=== PATIENT | male | born 2000 | race Caucasian/White ===

== ENCOUNTER 2023-10-27 09:02 | Inpatient (IN) | payer OTHER ==
[~2023-10-27] VITALS: Ht 175.3 cm; Wt 121.1 kg
[2023-10-27 09:09] VITALS: BP 116/72; PULSE 103; RESP 18; TEMP 98.6; O2SAT 96
--- NOTE | 2023-10-27 09:15 | NUR ---
TO ER BED 11
--- NOTE | 2023-10-27 09:30 | NUR ---
PATIENT PRESENTS TO ED WITH ABD PAIN . PT STATES THAT THEY HAVE 5/10 PAIN IN THE LOWERE ABD AREA. DENIES V/D PT STATES THEY HAVE NAUSEA; SKIN IS PINK/WARM/DRY; AAOX4 WITH EVEN AND STEADY GAIT; LUNGS CLEAR BL; HR EVEN AND REGULAR; PT DENIES ANY FEVER, CP, SOB, OR COUGH AT THIS TIME; VSS; PATIENT POSITIONED FOR COMFORT; HOB ELEVATED; BEDRAILS UP X2; BED DOWN. ER MD MADE AWARE OF PT STATUS. CALL LIGHT WITHIN REACH NKA DENIES PMHX
[2023-10-27] MEDS ORDERED: KETOROLAC 30 MG/ML VIAL IVP ONE (09:35)
--- NOTE | 2023-10-27 09:42 | NUR ---
PT TAKEN TO CT VIA W/C Addendum: 10/27/23 at 0947 by PHSEP brought back via w/c
[2023-10-27 10:08] LABS: APPEARANCE,URINE CLEAR (CLEAR); BILIRUBIN,URINE NEGATIVE (NEGATIVE); BLOOD, URINE NEGATIVE (NEGATIVE); COLOR,URINE YELLOW (YELLOW); LEUKOCYTE ESTERASE ,URINE NEGATIVE (NEGATIVE); NITRITE, URINE NEGATIVE (NEGATIVE); PROTEIN,URINE TRACE (NEGATIVE); UGLUCOSE NEGATIVE (NEGATIVE); UROBILINOGEN,URINE 0.2 EU/dL (0.2 - 1)
[2023-10-27] MEDS: MORPHINE SULFATE 4 MG/ML SYR IVP ONE (10:25)
[2023-10-27] MEDS: NACL 0.9% 1,000 ML IV ONE (10:25)
[2023-10-27 10:39] LABS: BASOPHILS % (AUTO) 0.1 % (0.0-2.0); EOSINOPHILS % (AUTO) 0.2 % (0.0-4.0); HEMATOCRIT 40.6 % (36-52); HEMOGLOBIN 13.6 g/dL (12.0-18.0); LYMPHOCYTES # (AUTO) 2.6 K/uL (2.0-11.5); LYMPHOCYTES % (AUTO) 18.8 % (20.5-51.1); MEAN CORPUSCULAR HEMOGLOBIN 29 pg (27-31); MEAN CORPUSCULAR HGB CONC 34 g/dL (33-37); MEAN CORPUSCULAR VOLUME 87.1 fL (80-94); MONOCYTES # (AUTO) 1.1 K/uL (0.8-1.0); MONOCYTES % (AUTO) 7.6 % (1.7-9.3); NEUTROPHILS # (AUTO) 10.3 K/uL (1.8-7.7); NEUTROPHILS % (AUTO) 73.3 % (42.2-75.2); PLATELET COUNT (AUTO) 342 K/uL (140-450); RED BLOOD CELL COUNT(AUTO) 4.66 MIL/uL (4.20-6.10); RED CELL DISTRIBUTION WIDTH 13.1 % (11.6-13.7)
[2023-10-27 10:54] LABS: ANION GAP 13.9 (8-16); CALCIUM 9.6 mg/dL (8.5-10.1); POTASSIUM 3.9 mmol/L (3.5-5.1)
[2023-10-27 10:59] LABS: ALBUMIN 4.2 g/dL (3.4-5.0); BILIRUBIN,DIRECT 0.2 mg/dL (0.0-0.3); TOTAL BILIRUBIN 1.6 mg/dL (0.0-1.0); TOTAL PROTEIN, SERUM 7.7 g/dL (6.4-8.2)
--- NOTE | 2023-10-27 11:16 | NUR ---
Patient appears to be resting comfortably in bed. Vital Signs within normal limits. Respirations even and unlabored.
--- NOTE | 2023-10-27 11:54 | NUR ---
PT TO CT SCAN VIA [facility] WITH CONVERTER OPERATOR
[2023-10-27] MEDS ORDERED: ROSU40TA PO (13:04)
[2023-10-27] MEDS ORDERED: TRAZ-343 PO (13:08)
[2023-10-27] MEDS ORDERED: SERT100T PO (13:08)
[2023-10-27] MEDS ORDERED: SERT50TA PO (13:08)
[2023-10-27] MEDS ORDERED: ACETAMINOPHEN 325 MG TAB PO PRN (13:55)
[2023-10-27] MEDS ORDERED: DOCUSATE SODIUM 100 MG GELCAP PO PRN (13:55)
[2023-10-27] MEDS ORDERED: MAG SULF 2000 MG/WATER PREMIX 50 ML IV PRN (13:55)
[2023-10-27 14:16] LABS: LACTIC ACID 1.5 mmol/L (0.4-2.0); MAGNESIUM 1.9 mg/dL (1.8-2.4); PHOSPHORUS 4.9 mg/dL (2.5-4.9)
[2023-10-27 14:29] LABS: INR 1.03 (0.8-1.2); PROTHROMBIN TIME 10.8 secs (10.8-13.4)
--- NOTE | 2023-10-27 14:42 | NUR ---
Patient appears to be resting comfortably in bed. Vital Signs within normal limits. Respirations even and unlabored.
[2023-10-27 15:30] VITALS: PULSE 89; RESP 18; O2SAT 98
--- NOTE | 2023-10-27 15:32 | NUR ---
ADMITTED FROM ER VIA [facility]. A & O X4. SPEECH CLEAR. NO C/O PAIN. NO C/O SOB. NO C/O N/V. SKIN WARM, DRY AND INTACT. EXPLAINED DIAGNOSIS, PLAN OF CARE, PAIN MANAGEMENT TEACHING, USE OF CALL LIGHT/BED/TV/BATHROOM. VERBALIZED UNDERSTANDING. CALL LIGHT WITHIN REACH.
[2023-10-27 15:45] VITALS: BP 109/69; PULSE 89; RESP 18; TEMP 98.5; O2SAT 98
--- NOTE | 2023-10-27 15:47 | NUR ---
Patient will be admitted to care of URIEL RIVERA. Admited to TELE. Will go to room 112A. Belongings list completed. MEDICATION RECON COMPLETED Report to MAXWELL JOSE .
--- NOTE | 2023-10-27 15:48 | NUR ---
Pt report given to MAXWELL JOSE. Transfer of care at this time.
[2023-10-27 15:54] LABS: AMPHETAMINE, URINE NEGATIVE ng/ml (NEG <=1000); BARBITURATE, URINE NEGATIVE ng/ml (NEG <=200); BENZODIAZEPINE, URINE NEGATIVE ng/mL (NEG <=200); CANNABINOID, URINE POSITIVE ng/mL (NEG <=50); COCAINE, URINE NEGATIVE ng/mL (NEG <=300); PHENCYCLIDINE SCREEN,URINE NEGATIVE ng/mL (NEG <=25)
[2023-10-27 15:55] LABS: OPIATE, URINE NEGATIVE ng/mL (NEG <=2000)
[2023-10-27 16:15] VITALS: PULSE 96
[2023-10-27] MEDS: DEXT 5% /NACL 0.9% 1,000 ML IV SCH (16:59)
[2023-10-27] MEDS: CIPROFLOXACIN 400 MG/200ML-D5W 200 ML IV SCH (17:13)
[2023-10-27 17:54] LABS: HEMATOCRIT 34.1 % (36-52); HEMOGLOBIN 11.6 g/dL (12.0-18.0)
[2023-10-27] MEDS: HYDROcodone/APAP 7.5/325 MG 1 TAB PO PRN (17:55)
--- NOTE | 2023-10-27 19:15 | NUR ---
BEDSIDE REPORT GIVEN TO DUGLAS TA. PT. MOTHER AT BEDSIDE. IN STABLE CONDITION.
--- NOTE | 2023-10-27 19:16 | NUR ---
REPORT GIVEN BY AM NURSE MAXWELL MARTEL FOR CONTINUITY OF CARE, PT A/OX4, RESPIRATION EQUAL, NON LABORED, ROOM AIR, PT VERBALIZED UNDERSTANDING OF NPO STATUS, RIGHT AC 18G 5% DEXTROSE NS @70ML/HR, BED IN LOWEST POSITION, RAILS UPX2, CALL LIGHT WITHIN REACH, COMMUNICATION BOARD UPDATED, WILL CONTINUE FREQUENT ROUNDS, WILL CONTINUE TO MONITOR.[email or web address]
[2023-10-27 20:00] VITALS: BP 117/75; PULSE 87; PULSE 92; RESP 18; TEMP 97.6; O2SAT 97
[2023-10-27] MEDS: metroNIDAZOLE 500 MG/NS PREMIX 100 ML IV SCH (20:18)
--- NOTE | 2023-10-27 22:00 | NUR ---
PT SLEEPING NO S/S OF DISTRESS NOTED, IV ABX GIVEN BY RN, PT TOLERATED ACTIVITY WELL.CALL LIGHT WITHIN REACH, WILL CONTINUE TO MONITOR.[email or web address]
[2023-10-28] VITALS (7 sets, daily range): BP systolic 108–129; BP diastolic 60–70; PULSE 76–96; RESP 18–76; TEMP 97–98.4; O2SAT 94–97
[2023-10-28 00:27] LABS: HEMATOCRIT 33.1 % (36-52); HEMOGLOBIN 11.4 g/dL (12.0-18.0)
[2023-10-28] MEDS: ONDANSETRON 4 MG/2 ML VIAL IV PRN (01:09)
--- NOTE | 2023-10-28 02:08 | NUR ---
PT STATES FEELING BETTER AFTER GIVEN MEDICATION BY RN FOR NAUSEA. NO S/S OF DISTRESS NOTED.CALL LIGHT WITHIN REACH.[email or web address]
[2023-10-28 06:32] LABS: BASOPHILS % (AUTO) 0.4 % (0.0-2.0); EOSINOPHILS # (AUTO) 0.1 K/uL (0-0.4); EOSINOPHILS % (AUTO) 1.1 % (0.0-4.0); HEMATOCRIT 32.6 % (36-52); HEMOGLOBIN 11.3 g/dL (12.0-18.0); LYMPHOCYTES # (AUTO) 1.7 K/uL (2.0-11.5); LYMPHOCYTES % (AUTO) 21.1 % (20.5-51.1); MEAN CORPUSCULAR HEMOGLOBIN 30 pg (27-31); MEAN CORPUSCULAR HGB CONC 35 g/dL (33-37); MEAN CORPUSCULAR VOLUME 87.4 fL (80-94); MONOCYTES # (AUTO) 0.7 K/uL (0.8-1.0); MONOCYTES % (AUTO) 8.5 % (1.7-9.3); NEUTROPHILS # (AUTO) 5.6 K/uL (1.8-7.7); NEUTROPHILS % (AUTO) 68.9 % (42.2-75.2); PLATELET COUNT (AUTO) 270 K/uL (140-450); RED BLOOD CELL COUNT(AUTO) 3.73 MIL/uL (4.20-6.10); RED CELL DISTRIBUTION WIDTH 13.2 % (11.6-13.7); WHITE BLOOD COUNT (AUTO) 8.1 K/uL (4.8-10.8)
[2023-10-28 06:42] LABS: ALBUMIN 3.4 g/dL (3.4-5.0); ANION GAP 10.8 (8-16); CALCIUM 8.4 mg/dL (8.5-10.1); CARBON DIOXIDE 29.1 mmol/L (21-32); CREATININE 0.8 mg/dL (0.6-1.3); MAGNESIUM 1.9 mg/dL (1.8-2.4); PHOSPHORUS 3.5 mg/dL (2.5-4.9); POTASSIUM 3.9 mmol/L (3.5-5.1); TOTAL BILIRUBIN 1.5 mg/dL (0.0-1.0); TOTAL PROTEIN, SERUM 6.5 g/dL (6.4-8.2)
--- NOTE | 2023-10-28 06:58 | NUR ---
PT SLEEPING, NO S/S OF DISTRESS NOTED, CALL LIGHT WITHIN REACH, WILL CONTINUE TO MONITOR.[email or web address]
--- NOTE | 2023-10-28 07:20 | NUR ---
RECEIVED REPORT FROM CLUB STEWARD NURSE OF PT FOR CONTINUITY OF CARE. PT IS SLEEPING, ON ROOM AIR. NO DISTRESS OR SOB NOTED. IV F INFUSING WELL. SAFETY MEASURES IN PLACE .CALL LIGHT KEEP WITHIN REACH
--- NOTE | 2023-10-28 07:46 | NUR ---
REPORT GIVEN TO AM NURSE VILLASENOR RN FOR CONTINUITY OF CARE.[email or web address]
[2023-10-28] MEDS: MORPHINE SULFATE 2 MG/ML SYR IVP PRN (07:58)
--- NOTE | 2023-10-28 09:16 | NUR ---
PATIENT HAS BEEN SCREENED AND CATEGORIZED LOW NUTRITION RISK. PATIENT WILL BE SEEN WITHIN 7 DAYS OF ADMISSION. 11/03/[address]
--- NOTE | 2023-10-28 11:00 | NUR ---
PT SEEN AND CHECKED. PT IS AWAKE, RESTING. NO DISTRESS NOTED. FAMILY AT BEDSIDE
[2023-10-28 12:53] LABS: HEMATOCRIT 31.9 % (36-52)
--- NOTE | 2023-10-28 14:40 | NUR ---
MD VILLANUEVA AT PT BEDSIDE
--- NOTE | 2023-10-28 17:00 | NUR ---
PT SEEN AND CHECKED. PT IS SITTING IN CHAIR NO DISTRESS NOTED. FAMILY AT BEDSIDE
--- NOTE | 2023-10-28 19:23 | NUR ---
ENDORSED PT TO WIENER PACKER NURSE FOR CONTINUITY OF CARE. PT IS RESTING IN BED. NO DISTRESS NOTED. HEPARIN DRIP CONTINUESLY DRIPPING. SAFETY MEASURES IN PLACE. FAMILY AT BEDSIDE Addendum: 10/28/23 at 1926 by HAMILTON TEE RN WRONG PT
--- NOTE | 2023-10-28 19:24 | NUR ---
REPORT GIVEN BY AM NURSE HAMILTON RN FOR CONTINUITY OF CARE, PT A/OX4, PT DENIES PAIN, PT STATES ABDOMEN FEELS SLIGHTLY BLOATED, REPARATION EQUAL, NON LABORED, ROOM AIR, PT ON CLEAR LIQUIDS, IV 18G D5% NS @ 70ML/HR, PT AMBULATING GAIT STEADY, BED IN LOWEST POSITION, RAILS UP X2, CALL LIGHT WITHIN REACH, COMMUNICATION BOARD UP DATED, WILL CONTINUE FREQUENT ROUNDS, WILL CONTINUE TO MONITOR.[email or web address]
--- NOTE | 2023-10-28 19:27 | NUR ---
ENDORSED PT TO SERVER NURSE FOR CONTINUITY OF CARE. PT IS RESTING IN BED. NO DISTRESS NOTED. IVF INFUSING WELL. SAFETY MEASURES IN PLACE. CALL LIGHT KEEP WITHIN REACH
--- NOTE | 2023-10-28 22:00 | NUR ---
PT SLEEPING, NO S/S DISTRESS NOTED, PT GIVEN IV ABX ORDERED BY RN, CALL LIGHT WITHIN REACH.[email or web address]
[2023-10-29] VITALS (9 sets, daily range): BP systolic 113–129; BP diastolic 59–77; PULSE 74–109; RESP 20; TEMP 97.5–98.6; O2SAT 96–99
--- NOTE | 2023-10-29 02:00 | NUR ---
PT AWAKE, ALERT, SITTING IN CHAIR WATCHING TV, NO S/S OF DISTRESS NOTED, CALL LIGHT WITHIN REACH.[email or web address]
[2023-10-29 06:59] LABS: BASOPHILS % (AUTO) 0.6 % (0.0-2.0); EOSINOPHILS # (AUTO) 0.1 K/uL (0-0.4); EOSINOPHILS % (AUTO) 1.6 % (0.0-4.0); HEMATOCRIT 29.5 % (36-52); HEMOGLOBIN 10.4 g/dL (12.0-18.0); LYMPHOCYTES # (AUTO) 1.9 K/uL (2.0-11.5); LYMPHOCYTES % (AUTO) 29.2 % (20.5-51.1); MEAN CORPUSCULAR HEMOGLOBIN 31 pg (27-31); MEAN CORPUSCULAR HGB CONC 35 g/dL (33-37); MEAN CORPUSCULAR VOLUME 86.9 fL (80-94); MONOCYTES # (AUTO) 0.6 K/uL (0.8-1.0); MONOCYTES % (AUTO) 9.6 % (1.7-9.3); NEUTROPHILS # (AUTO) 3.9 K/uL (1.8-7.7); PLATELET COUNT (AUTO) 255 K/uL (140-450); RED CELL DISTRIBUTION WIDTH 12.8 % (11.6-13.7); WHITE BLOOD COUNT (AUTO) 6.6 K/uL (4.8-10.8)
[2023-10-29 06:59] LABS: ALBUMIN 3.2 g/dL (3.4-5.0); ANION GAP 11.5 (8-16); CALCIUM 8.4 mg/dL (8.5-10.1); CARBON DIOXIDE 28.1 mmol/L (21-32); CREATININE 0.8 mg/dL (0.6-1.3); MAGNESIUM 1.9 mg/dL (1.8-2.4); PHOSPHORUS 3.5 mg/dL (2.5-4.9); POTASSIUM 3.6 mmol/L (3.5-5.1); TOTAL PROTEIN, SERUM 6.3 g/dL (6.4-8.2)
--- NOTE | 2023-10-29 07:40 | NUR ---
RECEIVED REPORT FROM NIGHT NURSE, AOX4, NO DISTRESS NOTED, ON CLEAR LIQUID DIET, ROOM AIR, WITH ONGOING D5 NS X 70ML/HR ON RIGHT AC G18, SAFETY PRECAUTIONS IN PLACE, CALL LIGHT WITHIN REACH, BED ON LOWEST, CONTINUE MONITORING
--- NOTE | 2023-10-29 07:40 | NUR ---
REPORT GIVEN TO AM NURSE INNA RN FOR CONTINUITY OF CARE, NO S/S OF DISTRESS NOTED.[email or web address]
--- NOTE | 2023-10-29 12:00 | NUR ---
PATIENT ON BED, NO DISTRESS NOTED, VITAL SIGNS STABLE, IVF DISCONTINUED, SAFETY PRECAUTIONS IN PLACE, CALL LIGHT WITHIN REACH, BED ON LOWEST, WILL CONTINUE MONITORING
--- NOTE | 2023-10-29 16:00 | NUR ---
PATIENT AWAKE, AOX4, VITAL SIGNS STABLE, NO DISTRESS NOTED, SAFETY PRECAUTIONS IN PLACE, CALL LIGHT WITHIN REACH, BED ON LOWEST POSITION
--- NOTE | 2023-10-29 19:17 | NUR ---
GAVE REPORT TO NIGHT NURSE FOR CONTINUITY OF CARE, PATIENT STABLE
--- NOTE | 2023-10-29 19:18 | NUR ---
REPORT GIVEN BY AM NURSE FOR CONTINUITY OF CARE, PT A/O X 4, NO S/S OF DISTRESS NOTED, RESPIRATION EQUAL, NON LABORED, ROOM AIR, SL TO RIGHT AC 18 G, INTACT, FLUSHED WITH NS, BED IN LOWEST POSITION, RAILS UP X2, CALL LIGHT WITHIN REACH, COMMUNICATION BOARD UPDATED, WILL CONTINUE FREQUENT ROUNDS, WILL CONTINUE TO MONITOR.[email or web address]
--- NOTE | 2023-10-29 22:00 | NUR ---
PT SLEEPING, NO S/S OF DISTRESS NOTED, PT GIVEN IV ABX BY RN ORDERED, CALL LIGHT WITHIN REACH, WILL CONTINUE TO MONITOR.[email or web address]
[2023-10-30] VITALS: BP 101/58; PULSE 73; PULSE 78; RESP 18; TEMP 98.7; O2SAT 97
--- NOTE | 2023-10-30 02:35 | NUR ---
PT ASLEEP, NO S/S OF DISTRESS NOTED, CALL LIGHT WITHIN REACH, WILL CONTINUE TO MONITOR.[email or web address]
[2023-10-30 04:00] VITALS: BP 112/65; PULSE 75; RESP 20; TEMP 98.3; O2SAT 100
[2023-10-30 06:28] LABS: BASOPHILS # (AUTO) 0.1 K/uL (0.00-0.22); BASOPHILS % (AUTO) 0.8 % (0.0-2.0); EOSINOPHILS # (AUTO) 0.1 K/uL (0-0.4); EOSINOPHILS % (AUTO) 1.7 % (0.0-4.0); HEMATOCRIT 31.9 % (36-52); HEMOGLOBIN 11.2 g/dL (12.0-18.0); LYMPHOCYTES # (AUTO) 1.7 K/uL (2.0-11.5); LYMPHOCYTES % (AUTO) 25.2 % (20.5-51.1); MEAN CORPUSCULAR HEMOGLOBIN 30 pg (27-31); MEAN CORPUSCULAR HGB CONC 35 g/dL (33-37); MEAN CORPUSCULAR VOLUME 86.5 fL (80-94); MONOCYTES # (AUTO) 0.5 K/uL (0.8-1.0); MONOCYTES % (AUTO) 8.1 % (1.7-9.3); NEUTROPHILS # (AUTO) 4.3 K/uL (1.8-7.7); NEUTROPHILS % (AUTO) 64.2 % (42.2-75.2); PLATELET COUNT (AUTO) 293 K/uL (140-450); RED BLOOD CELL COUNT(AUTO) 3.69 MIL/uL (4.20-6.10); WHITE BLOOD COUNT (AUTO) 6.7 K/uL (4.8-10.8)
[2023-10-30 06:52] LABS: ALBUMIN 3.9 g/dL (3.4-5.0); ANION GAP 11.2 (8-16); CALCIUM 8.9 mg/dL (8.5-10.1); CARBON DIOXIDE 27.4 mmol/L (21-32); CREATININE 0.8 mg/dL (0.6-1.3); MAGNESIUM 2.1 mg/dL (1.8-2.4); PHOSPHORUS 3.4 mg/dL (2.5-4.9); POTASSIUM 3.6 mmol/L (3.5-5.1); TOTAL BILIRUBIN 1.1 mg/dL (0.0-1.0); TOTAL PROTEIN, SERUM 7.6 g/dL (6.4-8.2)
--- NOTE | 2023-10-30 07:08 | NUR ---
REPORT GIVEN TO MANISHA GARZA RN FOR CONTINUITY OF CARE, NO S/S OF DISTRESS NOTED.[email or web address]
--- NOTE | 2023-10-30 07:09 | NUR ---
RECEIVED REPORT FROM NIGHT RN FOR CONTINUITY OF CARE, NO SIGNS OF DISTRESS VISIBLE RISE AND FALL. CALL LIGHT WITHIN REACH
[2023-10-30 08:00] VITALS: BP 123/62; PULSE 76; RESP 20; TEMP 97.4; O2SAT 98
[2023-10-30 10:49] VITALS: BP 123/62; PULSE 76; RESP 20; TEMP 97.4
[2023-10-30] MEDS ORDERED: ACET500T99 PO (10:56)
--- NOTE | 2023-10-30 11:15 | NUR ---
PATIENT LEFT UNIT WALKING, STEADY GAIT. PATIENT WITH MOTHER, IV OUT. ALL BELONGINGS TAKEN BY PATIENT. NO SIGNS OF DISTRESS. PATIENT UNDERSTOOD DC INSTRUCTIONS
== END 2023-10-30 11:15 | disposition home or self-care (01) | DRG 871 ==
LOC: MED 09:02 → MTU 13:54
PROVIDERS: ADMIT Student in an Organized Health Care Education/Training Program; ATTEND Student in an Organized Health Care Education/Training Program
DX: A41.9 Sepsis, unspecified organism (principal); K65.9 Peritonitis, unspecified; K66.1 Hemoperitoneum; E78.5 Hyperlipidemia, unspecified; F41.9 Anxiety disorder, unspecified; Z79.899 Other long term (current) drug therapy; Z90.49 Acquired absence of other specified parts of digestive tract
CPT/HCPCS: 36415; 71045; 80048; 80053; 80076; 80305; 81003; 83605; 83690; 83735; 83880; 84100; 84484; 85018; 85025; 85610; 85730; 86886; 86900; 86901; 87040; 87081; 87086; 93005; 96360; 99291; 99292; J0744; J2270; J2405; J3490; Q0092; Q9967